=== PATIENT | male | born 1980 | race Caucasian/White ===

== ENCOUNTER 2023-07-19 12:47 | Outpatient (CLI) | payer BC, SELFPAY ==
--- OUTSIDE RECORDS SUMMARY | 2023-07-19 12:50 | XMS_ITS | Clinical Summary ---
Author Name Unknown Organization [facility] Address [place], [place] [address] Care Team Providers Care Freezer Laboratory Technician Name Role Phone Tai Melendez MD Primary Care Provider Allergies No known active allergies Medications Medication Sig Dispensed Refills Start Date End Date Status SUMAtriptan (IMITREX) 100 mg tabletIndications:Mi graine without status migrainosus, not intractable, unspecified migraine type Take 1 Tablet (100 mg) by mouth every 2 hours if needed for Migraine. Give at minimum 2hrs apart. Max Dose: 200mg per 24hrs. 6 Tablet 3 04/18/2022 Active omeprazole (PRILOSEC) 40 mg Delayed-Release capsuleIndications:C hronic GERD TAKE 1 CAPSULE(40 MG) BY MOUTH EVERY DAY BEFORE A MEAL 30 Capsule 0 06/19/2022 Active CPAPIndications:EUNICE (obstructive sleep apnea) CPAP machine for home use at pressure 12 cmw, full face mask x1/3month with a full face cushion x1/mo 1 Each 11 08/09/2022 Active Active Problems Problem Noted Date Diagnosed Date s/p Right elbow arthroscopic debridement with removal of loose bodies and contracture release, Open posterior elbow joint debridement, DOS: 05/18/[address] Dia 06/27/2018 EUNICE 07/20/2015 AHI-21, worse in REM sleep 08/25/19 16 Disorders of bursae and tend ons in shoulder region, unspecified 11/30/2006 Flexion contracture of elbow, right Immunizations Name Administration Dates Next Due Hepatitis B (Adult) 01/15/2008,05/25/2007,2006 MMR 10/06/1994 Tdap 03/08/2020 Family History Medical History Relation Name Comments Heart attack Father Diabetes Maternal Grandfather Heart Disease Paternal Grandfather Relation Name Status Comments Father Alive Maternal Grandfather Mother Alive Paternal Grandfather Social History Tobacco Use Types Packs/Day Years Used Date Smoking Tobacco: Never Smokeless Tobacco: Never Tobacco Cessation:Counseling Given: Yes Alcohol Use Standard Drinks/Week Comments Not Currently 0 (1 standard drink = 0.6 oz pur e alcohol) occasional PHQ-2 Answer Date Recorded PHQ-2 TOTAL SCORE 0 04/18/2022 Social Connections Answer Date Recorded Frequency of Communication with Friends and Fami ly Not on file 06/19/2021 Financial Resource Strain Answer Date R ecorded Difficulty of Paying Living Expenses Not on file 06/19/2021 Difficulty of Paying Living Expenses Not on file 06/19/2021 Sex and Gender Information Value Date Recorded Sex Assigned at Not on file Gender Identity Not on file Sexual Orientation Not on file Obstetrics History Last Filed Vital Signs Vital Sign Reading Time Taken Comments Blood Pressure 138/73 08/09/2022 2:02 PM [employer] Pulse 64 08/09/2022 1:59 PM [employer] Temperature 36.8 ??C (98.2 ??F) 03/16/2020 10:38 AM C DT Respiratory Rate 18 04/18/2022 1:22 PM CDT Oxygen Saturation 97% 08/09/2022 1:59 PM [employer] Inhaled Oxygen Concentration - - Weight 144.7 kg (319 lb) 08/09/2022 1:59 PM [employer] Height 177.8 cm (5' 10) 08/09/2022 1:59 PM [employer] Body Mass Index 45.77 08/09/2022 1:59 PM [employer] Plan of Treatment Health Maintenance Due Date Last Done Comments HIV for age 15-65 1997 Hepatitis C screening for age 18-79 2000 COVID-19 vaccine series ( season) 2023 04/22/2021, 07/15/2020, 06/18/2020 Influenza for age 9-49 02/17/2023 Depression screening for age 12+ 04/18/2023 04/18/2022, 01/19/2021, 03/16/2020, Additional history exists BMI (ht and wt on same day) for age 18+ 08/09/2023 08/09/2022, 04/18/2022, 03/13/2019, Additional history exists Lipids for age 35-44 04/18/2027 04/18/2022, 03/13/20 19 Tetanus booster 03/08/2030 03/08/2020 Tdap Completed 03/08/2020 Pneumococcal series for age 6-64 Aged Out No longer eligible based on patient's age to complete this topic Advance Directives Latest Code Status on File Code Status Date Activated Date Inactivated Comments Full Code 05/18/2018 5:59 AM 05/18/2018 2:32 PM Care Teams Freezer Laboratory Technician Relationship Specialty Start Date End Date Tai Melendez MD [address] [facility] [place] [id number] PCP - General 03/09/06
--- NOTE | 2023-07-19 13:00 | MR_ITS ---
[address] [address] Phone:?[phone] Fax:?[phone] Referring Physician Information: Joshua Sharma [id number] [facility] [address] Phone:?[phone] Fax:?[phone] Patient:Mary Ames D.O.B:?1980 Sex:?Male Phone:?[phone] [facility] MRN:?[id number] Exam Date:?07/19/2023 EXAM: MRI of the LEFT KNEE, without contrast CLINICAL HISTORY: Left knee pain. Evaluate for lateral meniscal tear. COMPARISONS: Plain radiographs 07/10/2023. TECHNICAL: MR sequences of the left knee: sagittals: PD, PDFS coronals: PD, STIR axials: PD, T2 FS CONTRAST: None SEDATION: None FINDINGS: Bones: No fracture or destructive osseous lesion is seen. 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 Retinacula: The medial and lateral retinacula are intact. Fat pads: The infrapatellar, quadriceps, and prefemoral fat pads are unremarkable. Knee joint: Effusion: Trace left knee joint effusion. Popliteal cyst: Small popliteal cyst. Intra-articular bodies: None. Posteromedial corner: The semimembranosus and pes anserine tendons are intact. Medial compartment: Medial meniscus: There is a suspected near full-thickness radial tear of the posterior horn of the medial meniscus best seen on axial series 4 image 25 and sagittal series 12 image 11 although it must be noted that evaluation is markedly compromised by markedly poor vlxwhx-hi-uughf and motion artifact. Cartilage: There is a suspected extensive full-thickness chondral loss over the posterior weightbearing portion of the medial femoral condyle with associated central osteophyte formation although it must be noted that evaluation is markedly compromised by markedly poor yeytre-zw-qpsvc and motion artifact. Lateral compartment: Lateral meniscus: No lateral meniscal tear is seen. Cartilage: The lateral compartment cartilage appears predominantly intact although evaluation is compromised by markedly poor accbaz-gc-tokmr and motion artifact. Ligaments: Anterior cruciate ligament: Intact. Posterior cruciate ligament: Intact. Medial collateral ligament: Intact. Posterior oblique ligament: Intact. Fibular collateral ligament: Intact. Posterolateral corner: The distal biceps femoris tendon, iliotibial band, popliteus tendon, popliteus muscle, popliteofibular ligament, and arcuate ligament are intact. Extensor mechanism: Patellar tendon: Intact. Quadriceps tendon: Intact. IMPRESSION: 1. Suspected near full-thickness radial tear of the posterior horn of the medial meniscus although it must be noted that evaluation is compromised by markedly poor brpoyb-pa-ybruo and motion artifact. 2. 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 3. Suspected extensive full-thickness chondral loss over the posterior weightbearing portion of the medial femoral condyle with associated central osteophyte formation although it must be noted that evaluation is compromised by markedly poor sodjpq-ze-ntvsg and motion artifact. 4. Trace left knee joint effusion. Small popliteal cyst. 5. No evidence of lateral meniscal tear or lateral compartment chondral defect although it must be noted that evaluation is compromised by markedly poor onqxss-zd-usdhp and motion artifact. 6. No ligamentous or tendinous pathology of the left knee. RCB Electronically signed on 07/19/2023 5:11:00 PM by Yuval Dalton M.D.
== END 2023-07-19 12:48 | disposition home or self-care (01) ==
LOC: MRI 12:47
PROVIDERS: PCP Family Medicine; Visit Provider Physician Assistant
DX: M25.562 Pain in left knee (principal); S83.242A Other tear of medial meniscus, current injury, left knee, initial encounter; M22.42 Chondromalacia patellae, left knee; M25.462 Effusion, left knee; S83.289A Other tear of lateral meniscus, current injury, unspecified knee, initial encounter
CPT/HCPCS: 73721

== ENCOUNTER 2024-08-12 20:04 | Outpatient (CLI) | payer BC, SELFPAY | END 2024-08-12 20:05 | disposition home or self-care (01) | LOC: SLEEP 20:05 | PROVIDERS: PCP Family Medicine; Visit Provider Internal Medicine | DX: G47.33 Obstructive sleep apnea (adult) (pediatric) (principal) | CPT/HCPCS: 95811 ==

== ENCOUNTER 2024-11-01 13:52 | Outpatient (CLI) | payer BC, SELFPAY | END 2024-11-01 13:53 | disposition home or self-care (01) | LOC: NFLDUCREF 13:53 | PROVIDERS: PCP Family Medicine | DX: R31.9 Hematuria, unspecified (principal) | CPT/HCPCS: 87086 ==